=== PATIENT | female | born 1975 | race Native Hawaiian/Other Pacific Islander ===

== ENCOUNTER 2018-04-27 14:29 | Emergency (ER) | payer OTHER ==
[2018-04-27 14:33] VITALS: RESP 18; O2SAT 100
[2018-04-27] MEDS ORDERED: Sodium Chloride 0.9% 1,000 ML IV STA (15:24)
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
[2018-04-27 18:01] VITALS: BP 120/76; PULSE 76; TEMP 98
== END 2018-04-27 18:00 | disposition home or self-care (01) ==
LOC: H.ER 14:29
DX: R51 Headache (principal); M54.9 Dorsalgia, unspecified; V43.52XA Car driver injured in collision with other type car in traffic accident, initial encounter; Y92.410 Unspecified street and highway as the place of occurrence of the external cause
CPT/HCPCS: 70450; 81025; 96374; 96375; 99283; J1885; J2765; J7030